=== PATIENT | male | born 1965 | race Caucasian/White ===

== ENCOUNTER 2025-01-04 12:57 | Emergency (ER) | payer BC ==
[2025-01-04] MEDS: Diphtheria,Pertussis(Acell),Tetanus Vaccine 0.5 ML Syringe IM ONE (13:39)
== END 2025-01-04 14:36 | disposition home or self-care (01) ==
LOC: JD.ED 12:57
DX: S81.012A Laceration without foreign body, left knee, initial encounter (principal); E11.9 Type 2 diabetes mellitus without complications; Z88.2 Allergy status to sulfonamides; Z23 Encounter for immunization; W01.198A Fall on same level from slipping, tripping and stumbling with subsequent striking against other object, initial encounter; Y93.89 Activity, other specified
CPT/HCPCS: 12002; 90471; 90715; 99282; J2003; 99283